=== PATIENT | female | born 1975 | race Hispanic/Latino ===

== ENCOUNTER 2024-12-28 10:01 | Emergency (ER) | payer SELFPAY ==
[~2024-12-28] VITALS: Ht 160 cm; Wt 77.1 kg
[2024-12-28 10:54] LABS: IMMATURE GRANULOCYTE ABSOLUTE 0.01 K/uL (0-1); NUCLEATED RED BLOOD CELLS 0.0 % (0.0-0.19); PLATELET COUNT (AUTO) 275 K/uL (130-400); RED BLOOD CELL COUNT(AUTO) 5.57 MIL/uL (4.00-5.50); RED CELL DISTRIBUTION WIDTH 16.5 % (11.0-15.5); WHITE BLOOD COUNT (AUTO) 4.7 K/uL (4.8-10.8)
[2024-12-28 11:02] LABS: CREATININE 0.7 mg/dL (0.5-1.0); GLOMERULAR FILTR. RATE CALC 107.0 mL/min (>90); GLUCOSE,RANDOM 79.0 mg/dL (70-105); SODIUM SERUM 138.0 mmol/L (136-145); UREA NITROGEN, BLOOD 11.0 mg/dL (7-18)
--- NOTE | 2024-12-28 11:02 | EKG ---
[facility] Test Date: 2024-12-28 Test Time: 10:12:27 Pat Name: RICK AKHTAR Department: [facility] Room: Gender: F [employer] Tender: [id number] : 1975 Requested By: CATRACHITO SHEIKH Order Number: [id number] Reading MD: Rasta Dickens Measurements Intervals [place] Rate: 80 P: 61 WI: 122 QRS: 13 QRSD: 75 T: -3 QT: 356 QTc: 412 Interpretive Statements Sinus rhythm Ventricular premature complex Aberrant conduction of SV complex(es) Low voltage, precordial leads No previous ECG available for comparison Electronically Signed On 12-28-2024 11:42:02 CDT by Rasta Dickens Please click the below link to view image of tracing.
[2024-12-28 11:07] LABS: CREATINE KINASE, TOTAL 95.0 U/L (21-232)
[2024-12-28 11:19] LABS: APPEARANCE,URINE CLOUDY (CLEAR); GLUCOSE, URINE (UA) NEGATIVE (NEGATIVE); LEUKOCYTE ESTERASE ,URINE 75 Leu/uL (NEGATIVE); NITRATE,URINE NEGATIVE (NEGATIVE); OCCULT BLOOD,URINE SMALL (NEGATIVE)
[2024-12-28 11:24] LABS: ADD UA MICROSCOPIC YES
[2024-12-28 11:28] LABS: SQUAMOUS EPITHELIAL CELL,UR FEW /HPF (0-2)
[2024-12-28 11:33] LABS: HCG,QUALITATIVE URINE NEGATIVE (NEGATIVE)
[2024-12-28 12:53] VITALS: BP 115/65; PULSE 77; RESP 18; TEMP 97.8; O2SAT 98
--- NOTE | 2024-12-28 12:57 | HMCIMG ---
EXAM: US Abdomen, Right Upper Quadrant. CLINICAL HISTORY: epigastric pain TECHNIQUE: Right upper quadrant sonography performed with image documentation. COMPARISON: None provided. FINDINGS: LIVER: Within normal limits in size. No mass. Increased echogenicity of the liver parenchyma. Intrahepatic biliary radicles dilated, measuring 3 mm GALLBLADDER: The gallbladder appears normal. No gallbladder wall thickening seen. No gallstones are evident. COMMON BILE DUCT: Within normal limits in size, measuring approximately 3 mm PANCREAS: The distal pancreas is obscured by bowel gas. The visualized portion of the pancreas appears within normal limits. RIGHT KIDNEY: Unremarkable. Normal renal contours. No renal mass or calculus. No hydronephrosis. IMPRESSION: 1. No acute findings. 2. Increased hepatic echogenicity with mildly dilated intrahepatic bile ducts. /[place]
[2024-12-28] MEDS ORDERED: NITR-166 PO (13:10)
[2024-12-28] MEDS ORDERED: PANT40TA55 PO (13:10)
--- NOTE | 2024-12-28 13:10 | ERN ---
ED Note History of Present Illness Stated Complaint: CHEST PAIN Chief Complaint: Chest Pain Time Seen by MD: 10:10 Dictation: 49-YEAR-OLD FEMALE PRESENTS TO ER COMPLAINTS OF EPIGASTRIC PAIN. PATIENT STATES BEGAN THIS MORNING. DENIES FEVER, SHORTNESS OF BREATH CHEST PAIN. Allergies: Coded Allergies: No Known Drug Allergies (Unverified Allergy, Unknown, 12/28/24) Home Meds Active Scripts Nitrofurantoin Macrocrystal (Macrodantin) 100 Mg Cap, 1 CAP PO BID for 7 Days, #14 CAP 0 Refills Prov:CATRACHITO SHEIKH NP 12/28/24 Pantoprazole Sodium (Protonix) 40 Mg Ectab, 1 TAB PO DAILY for 30 Days, #30 TAB 0 Refills Prov:CATRACHITO SHEIKH NP 12/28/24 Past Medical History Past Medical History: No Pertinent History Surgical History: Other Surgical History Other: GASTRIC SLEEVE Review of System Dictation CONSTITUTIONAL: NEGATIVE FOR FEVER,CHILLS, AND WEIGHT LOSS EYES: NEGATIVE FOR INJURY, PAIN,REDNESS, AND DISCHARGE ENT: NEGATIVE FOR INJURY,PAIN OR SWELLING CARDIOVASCULAR: NEGATIVE FOR CHEST PAIN, PALPITATIONS, AND EDEMA RESPIRATORY: NEGATIVE FOR SHORTNESS OF BREATH, COUGH, WHEEZING, AND PLEURITIC CHEST PAIN ABDOMEN/GI: NEGATIVE FOR DIARRHEA, AND CONSTIPATION. POSITIVE FOR ABDOMINAL PAIN AND NAUSEA BACK: NEGATIVE FOR INJURY AND PAIN : NEGATIVE FOR INJURY, BLEEDING AND DISCHARGE MS/EXTREMITY: NEGATIVE FOR INJURY AND DEFORMITY SKIN: NEGATIVE FOR RASH, AND DISCOLORATION NEURO: NEGATIVE FOR HEADACHE, WEAKNESS, NUMBNESS, TINGLING, AND SEIZURE PSYCH: NEGATIVE FOR SUICIDE IDEATION, HOMICIDAL IDEATION, AND HALLUCINATIONS ALLERGY/IMMUNOLOGY: NEGATIVE FOR HIVES, RASH, AND ALLERGIES Initial Vital Sign VS Vital Signs Date Time Temp Pulse Resp B/P (MAP) Pulse Ox O2 Delivery O2 Flow Rate FiO2 12/28/24 10:02 98.1 91 18 134/88 99 Room Air 12/28/24 11:12 0 21 Physical Exam Dictation GENERAL: AWAKE, ALERT, NAD HEAD/FACE: NORMOCEPHALIC, ATRAUMATIC EYES: PERRL, EOMI, VISION AT BASELINE ENT: ORAL CAVITY CLEAR, TMS CLEAR, NO SIGNS OF INFECTION NECK: TRACHEA MIDLINE, SUPPLE, NO NUCHAL RIGIDITY CARDIOVASCULAR: RRR, NORMAL S1/S2, NO MRGS, NO JVD RESPIRATORY: CTAB, NO RESPIRATORY DISTRESS, NO RALES OR WHEEZES ABDOMEN: SOFT, NON-DISTENDED, NORMAL BOWEL SOUNDS. EPIGASTRIC PAIN TENDERNESS UPON PALPATION SKIN: WARM, DRY, NORMAL TURGOR, NO RASH MS/EXTREMITY: PULSES EQUAL, NO CYANOSIS, NEUROVASCULAR INTACT, FROM NEURO: COAX4, GCS 15, STRENGTH 5/5, CN 2-12 INTACT, NORMAL CEREBELLAR EXAM, NORMAL GAIT, PSYCH: NORMAL BEHAVIOR, MOOD, AND AFFECT NORMAL Results (Laboratory/Radiology) Laboratory/Radiology Laboratory Tests Test 12/28/24 10:15 12/28/24 11:10 White Blood Count 4.7 K/uL (4.8-10.8) L Red Blood Count 5.57 MIL/uL (4.00-5.50) H Hemoglobin 15.1 g/dL (12.0-16.0) Hematocrit 46.6 % (36-48) Mean Corpuscular Volume 83.7 fL (79-99) Mean Corpuscular Hemoglobin 27.1 pg (27.0-33.0) Mean Corpuscular Hemoglobin Concent 32.4 g/dL (32.0-36.0) Red Cell Distribution Width 16.5 % (11.0-15.5) H Platelet Count 275 K/uL (130-400) Mean Platelet Volume 8.5 fL (7.5-10.5) Immature Granulocyte % (Auto) 0.2 % (0-1) Neutrophils (%) (Auto) 54.3 % (40.0-77.0) Lymphocytes (%) (Auto) 34.3 % (21.0-51.0) Monocytes (%) (Auto) 6.7 % (3.0-13.0) Eosinophils (%) (Auto) 3.6 % (0.0-8.0) Basophils (%) (Auto) 0.9 % (0.0-5.0) Neutrophils # (Auto) 2.5 K/uL (1.8-7.7) Lymphocytes # (Auto) 1.6 K/uL (1.0-4.8) Monocytes # (Auto) 0.3 K/uL (0.1-1.0) Eosinophils # (Auto) 0.17 K/uL (0.00-0.70) Basophils # (Auto) 0.04 K/uL (0.00-0.20) Absolute Immature Granulocyte (auto 0.01 K/uL (0-1) Nucleated Red Blood Cells 0.0 % (0.0-0.19) Sodium Level 138 mmol/L (136-145) Potassium Level 4.5 mmol/L (3.5-5.1) Chloride Level 99 mmol/L (101-111) L Carbon Dioxide Level 31 mmol/L (21-32) Blood Urea Nitrogen 11 mg/dL (7-18) Creatinine 0.7 mg/dL (0.5-1.0) Glomerular Filtration Rate Calc 107 mL/min (>90) Random Glucose 79 mg/dL (70-105) Total Calcium 9.2 mg/dL (8.5-10.1) Total Creatine Kinase 95 U/L (21-232) Troponin I High Sensitivity 4 ng/L (4-50) Amylase Level 84 U/L (25-115) Lipase 72 U/L (16-77) Urine Color LIGHT-YELLOW (YELLOW) Urine Appearance CLOUDY (CLEAR) H Urine pH 5.5 (5.0-8.0) Urine Specific [place] 1.016 (1.001-1.031) Urine Protein NEGATIVE mg/dL (NEGATIVE) Urine Glucose (UA) NEGATIVE mg/dL (NEGATIVE) Urine Ketones NEGATIVE mg/dL (NEGATIVE) Urine Occult Blood SMALL (NEGATIVE) H Urine Nitrate NEGATIVE (NEGATIVE) Urine Bilirubin NEGATIVE mg/dL (NEGATIVE) Urine Urobilinogen 0.2 mg/dL (0.2-1.0) Urine Leukocyte Esterase 75 [place]/uL (NEGATIVE) H Urine RBC 6-10 /HPF (0-1) H Urine WBC 2-5 /HPF (0-1) H Urine Squamous Epithelial Cells FEW /HPF (0-2) Urine Bacteria RARE /HPF (None Seen) Urine HCG, Qualitative NEGATIVE (NEGATIVE) ED Course ED Course Orders Procedure Category Date Status Time 12 Lead Ekg Tracing- EKG 12/28/24 Resulted Technical 10:11 Cbc With Differential LAB 12/28/24 Complete 10:38 Amylase LAB 12/28/24 Complete 10:38 Troponin I High LAB 12/28/24 Complete Sensitivity 10:38 ,Urine Test LAB 12/28/24 Complete 10:38 Urinalysis Profile LAB 12/28/24 Complete 10:38 Creatine Kinase, Total LAB 12/28/24 Complete 10:38 Lipase LAB 12/28/24 Complete 10:38 Basic Metabolic Panel LAB 12/28/24 Complete 10:38 12 Lead Ekg Tracing- EKG 12/28/24 Logged Technical 10:38 Ketorolac PHA 12/28/24 Complete Tromethamine 30mg/Ml 11:00 Culture Urine VISHAL 12/28/24 In Process 11:24 Us Abdominal Ruq\Ltd US 12/28/24 Resulted 11:54 Pantoprazole 40mg Inj PHA 12/28/24 Complete (Protonix 40mg Inj 13:30 Ceftriaxone 1g Vial PHA 12/28/24 Complete (Rocephine 1g Inj) 13:30 Current Medications Medications (Trade) Dose Ordered Sig/[place] Route PRN Reason Start Time Stop Time Status Last Admin Dose Admin Ceftriaxone Sodium (ROCEphine 1G INJ) 1 gm ONCE ONCE IV 12/28/24 13:30 12/28/24 13:31 DC 12/28/24 13:18 Ketorolac Tromethamine (toRADol) 30 mg ONCE ONCE IVP 12/28/24 11:00 12/28/24 11:01 DC 12/28/24 11:01 Pantoprazole Sodium (PROTonix 40MG INJ) 40 mg ONCE ONCE IVP 12/28/24 13:30 12/28/24 13:31 DC 12/28/24 13:18 Vital Signs Date Time Temp Pulse Resp B/P (MAP) Pulse Ox O2 Delivery O2 Flow Rate FiO2 12/28/24 12:53 97.9 77 18 115/65 98 Room Air* 0 21 12/28/24 11:12 70 18 106/61 98 Room Air* 0 21 12/28/24 10:02 98.1 91 18 134/88 99 Room Air Medical Decision Making MDM MDM: DIFFERENTIAL DIAGNOSIS: GASTRITIS, CHOLELITHIASIS, CHOLECYSTITIS, GERD RATIONALE: TESTS CONSIDERED AND ORDERED SECONDARY TO SHARED DECISION MAKING INCLUDE: LABS, ECG AND RADIOLOGY PREVIOUS OUTSIDE RECORDS REVIEWED: OLD ER VISITS. RISK OF COMPLICATION AND/OR MORBIDITY OR MORTALITY OF PATIENT MANAGEMENT: NONE MEDICATIONS-PER MEDICATION RECONCILIATION NEED FOR HOSPITALIZATION: PATIENT DOES NOT MEET CRITERIA FOR HOSPITALIZATION. NEED FOR EMERGENCY MAJOR/MINOR SURGERY: NO THERE ARE NO SOCIAL CONCERNS WITH THIS PATIENT. PRESCRIPTION DRUG MANAGEMENT PRESCRIPTIONS WILL INCLUDE SYMPTOMATIC CARE PATIENT'S PRIOR EXTERNAL MEDICAL RECORDS FROM OTHER ER VISITS WERE REVIEWED BY ME INDICATED. PRIOR TESTING AND RESULTS FROM PREVIOUS VISITS WERE REVIEWED. PRIOR TESTS WERE TAKEN INTO ACCOUNT WITH MEDICAL DECISION MAKING AND RESOURCE UTILIZATION, INDEPENDENT HISTORIAN/HISTORIANS WERE USED TO OBTAIN COMPLETE MEDICAL HISTORY. I INDEPENDENTLY INTERPRETED THE TEST THAT WERE PERFORMED, RESULTS WERE REVIEWED BY ME AND CONSIDERED FINDINGS ON RADIOLOGY IF ORDERED. PATIENT VSS, NAD, NONTOXIC, STABLE FOR DISCHARGE. PT GIVEN DISCHARGE INSTRUCTIONS IN [place] TERMS AND UNDERSTOOD, ALL QUESTIONS ANSWERED. PT WILL FOLLOW UP WITH PCP AND RETURN TO THE ER IF WORSE. DX & DISP Disposition: Discharge Departure Impression: Primary Impression: Gastritis Additional Impressions: Epigastric pain, UTI (urinary tract infection) Condition: Stable Scripts Nitrofurantoin Macrocrystal (Macrodantin) 100 Mg Cap 1 CAP PO BID for 7 Days, #14 CAP 0 Refills Prov: CATRACHITO SHEIKH NP 12/28/24 Pantoprazole Sodium (Protonix) 40 Mg Ectab 1 TAB PO DAILY for 30 Days, #30 TAB 0 Refills Prov: CATRACHITO SHEIKH NP 12/28/24 Additional Instructions: FOLLOW-UP WITH YOUR PCP IN 24-72 HOURS AND IN THE EVENT IF SYMPTOMS WORSEN OR AN EMERGENCY OVERNIGHT REPORT TO THE ED IMMEDIATELY Referrals: SELF,REFERRAL (PCP) CATRACHITO SHEIKH NP Dec 28, 2024 13:10
== END 2024-12-28 14:11 | disposition home or self-care (01) ==
LOC: EDH 10:01
DX: K29.70 Gastritis, unspecified, without bleeding (principal); N39.0 Urinary tract infection, site not specified; Z79.899 Other long term (current) drug therapy
CPT/HCPCS: 99285; 96365; 96375; 76705; 82150; 82550; 84484; 80048; 83690; 85025; 87086; 81001; 81025; 36415; 93005; J1885; J0696; J2470